=== PATIENT | female | born 1995 | race Asian ===

== ENCOUNTER 2024-09-06 16:57 | Emergency (ER) | payer OTHER ==
[~2024-09-06] VITALS: Ht 160 cm; Wt 46.0 kg
[2024-09-06 17:17] VITALS: BP 100/62; PULSE 82; RESP 18; TEMP 98; O2SAT 97
== END 2024-09-06 18:39 | disposition home or self-care (01) ==
LOC: ER 16:59
DX: S20.219A Contusion of unspecified front wall of thorax, initial encounter (principal); S40.011A Contusion of right shoulder, initial encounter; S00.31XA Abrasion of nose, initial encounter; V43.62XA Car passenger injured in collision with other type car in traffic accident, initial encounter; Y93.89 Activity, other specified; Y92.89 Other specified places as the place of occurrence of the external cause; Y99.8 Other external cause status
CPT/HCPCS: 71045; 73030; 99284